=== PATIENT | male | born 1965 | race Caucasian/White ===

== ENCOUNTER 2022-03-15 19:02 | Emergency (ER) | payer SELFPAY ==
[~2022-03-15] VITALS: Ht 167.6 cm; Wt 74.8 kg
[2022-03-15 19:22] VITALS: BP 149/87
== END 2022-03-15 19:25 | disposition left against medical advice (07) ==
LOC: ER 19:04
DX: Z53.21 Procedure and treatment not carried out due to patient leaving prior to being seen by health care provider (principal)